=== PATIENT | male | born 1940 | race African-American/Black ===

== ENCOUNTER 2017-02-01 18:18 | Emergency (ER) | payer OTHER, MEDICAID ==
[2017-02-01 18:29] VITALS: RESP 18
[2017-02-01] MEDS ORDERED: HYDROCODONE/APAP 10/325 TAB PO ONE (18:35)
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
[2017-02-01] MEDS ORDERED: HYDROCODONE/APAP 5/325 TAB ONE (18:39)
[2017-02-01] MEDS ORDERED: HYDROCODONE/APAP 5/325 TAB PO ONE (18:46)
[2017-02-01 19:32] LABS: ANION GAP 12 mEq/L (8-16); CALCIUM 8.9 mg/dL (8.5-10.4); CARBON DIOXIDE 22 mEq/l (22-31); CHLORIDE 104 mEq/L (97-110); GLOMERULAR FILTRATION RATE > 60; GLUCOSE 91 mg/dL (70-100); SODIUM 138 mEq/L (134-144)
[2017-02-01 19:39] LABS: POTASSIUM 4.1 mEq/L (3.3-5.0)
[2017-02-01 20:24] VITALS: BP 109/52; PULSE 72; TEMP 98.6; O2SAT 93
== END 2017-02-01 20:26 | disposition home or self-care (01) ==
LOC: EDUNIT#
DX: M54.5 Low back pain (principal); G89.29 Other chronic pain; E11.9 Type 2 diabetes mellitus without complications; I10 Essential (primary) hypertension; Z79.84 Long term (current) use of oral hypoglycemic drugs; Z87.891 Personal history of nicotine dependence

== ENCOUNTER → 2017-04-11 | Outpatient (CLI) | payer OTHER, MEDICAID | LOC: FIMAGING 08:45 | PROVIDERS: ATTEND Family Medicine | DX: I25.10 Atherosclerotic heart disease of native coronary artery without angina pectoris (principal); I10 Essential (primary) hypertension; E11.40 Type 2 diabetes mellitus with diabetic neuropathy, unspecified; Z87.891 Personal history of nicotine dependence ==

== ENCOUNTER 2018-09-15 17:06 | Inpatient (IN) | payer OTHER, MEDICAID ==
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
[2018-09-15] MEDS ORDERED: NS 1,000 ML IV ONE (17:34)
[2018-09-15 17:41] LABS: PLATELET COUNT 368 10^3/uL (150-400)
--- NOTE | 2018-09-15 18:01 | CPEKG ---
Test Reason : OPEN Blood Pressure : / mmHG Vent. Rate : 090 BPM Atrial Rate : 090 BPM P-R Int : 200 ms QRS Dur : 078 ms QT Int : 501 ms P-R-T Axes : 072 044 260 degrees QTc Int : 613 ms Sinus rhythm Abnormal T, consider ischemia, diffuse leads Prolonged QT interval Confirmed by Felicity Braxton ([id number]) on 09/15/2018 6:00:08 PM Referred By: Confirmed By:Felicity Braxton
[2018-09-15] MEDS ORDERED: ONDANSETRON DISINTEGRATING 4 MG TAB PO PRN (20:16)
[2018-09-15] MEDS ORDERED: ONDANSETRON 4 MG/2 ML VIAL IVP PRN (20:16)
[2018-09-15] MEDS: LIDOCAINE 4%/MENTHOL 1% PATCH TD SCH (20:57)
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
[2018-09-16] MEDS: PATCH REMOVAL 1 EA PATCH TD SCH (04:08)
[2018-09-16] MEDS: HYDROCODONE/APAP 5/325 TAB PO PRN ×2 (05:23→20:20)
[2018-09-16] MEDS ORDERED: ENOXAPARIN 40 MG/0.4 ML SYR SC SCH (09:00)
--- NOTE | 2018-09-16 10:28 | PDMN ---
Medical Necessity Medical necessity: Pt meets IP criteria as of 09/15/2018 per and EMIL MG-N ( neurology GRG); est los > 2 mn for ongoing tx and management of new onset weakness with frequent falls in an elderly patient; requiring PT/OT, med management and further workup including MRI.
[2018-09-16] MEDS ORDERED: CARBOXYMETHYLCELLULOSE 0.5% 0.4 ML DROPERETTE EACHEYE PRN (10:43)
[2018-09-16] MEDS ORDERED: PSYLLIUM METAMUCIL 1 PKT PO PRN (10:43)
[2018-09-16] MEDS ORDERED: ALBUTEROL 60 PUFFS/8 GM MDI IH PRN (10:43)
[2018-09-16] MEDS ORDERED: guaiFENesin 600 MG TAB.ER PO PRN (10:43)
--- NOTE | 2018-09-16 14:18 | ASMTCMCOM ---
CM Note CM Note Notes: Pt is a 78 yo M who lives at [facility] after falling. PT/OT rec: HHC vs SNF. CM to follow to assess needs. Plan: HHC vs SNF Date Signed: 09/16/2018 02:17 PM Electronically Signed By:TIFFANY Michaud
--- NOTE | 2018-09-16 15:36 | HOSPPROG ---
Hospitalist Progress Note Assessment/Plan: Subjective Follow-up on fall. History taking was somewhat limited as patient was quite tired and falling asleep during my evaluation. He did state though that he has been having some weakness of his lower extremities and a tendency for falling more frequently in the past month. He denies any specific neck pain at the current time. 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 I reviewed the case this afternoon with Dr. Mcnamara who will provide formal consultation for further recommendations. Otherwise continue with PT and OT. Chronic pain-patient is on chronic narcotics for pain. Hypertension-continue lisinopril. Hyperlipidemia-atorvastatin. Depression continue bupropion. BPH-history of. I do not see that he is currently on any medical therapy. DVT prophylaxis-Lovenox. Disposition-patient is a resident at [facility]. Will need to see how he does with physical therapy and await further recommendations from Neuro surgery. Objective: Vital Signs Temp Pulse Resp BP Pulse Ox 36.6 C 70 16 112/64 93 09/16/18 13:13 09/16/18 13:13 09/16/18 13:13 09/16/18 13:13 09/16/18 13:13 09/15/18 09/16/18 09/17/18 05:59 05:59 05:59 Intake Total 1000 Output Total 400 275 Balance 600 -275 ICD10 Worksheet Patient Problems: Problems Problem Status Onset Muscle weakness Acute Osteoarthritis of glenohumeral joint Acute
[2018-09-16] MEDS: ACETAMINOPHEN 325 MG TAB PO PRN (17:07)
[2018-09-16] MEDS: DOCUSATE SODIUM 100 MG CAP PO SCH ×2 (17:08→20:21)
[2018-09-16] MEDS: buPROPion 100 MG TAB PO SCH ×2 (17:08→20:21)
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
[2018-09-16] MEDS: LIDOCAINE 4%/MENTHOL 1% PATCH TD SCH (20:19)
[2018-09-16] MEDS: ATORVASTATIN CALCIUM 20 MG TAB PO SCH (20:21)
[2018-09-17] MEDS ORDERED: ceFAZolin 2 GM/DEXTROSE 100 ML IV ONE (08:59)
[2018-09-17] MEDS ORDERED: ASPIRIN EC 81 MG TAB PO SCH (09:00)
--- NOTE | 2018-09-17 09:06 | PDHPUP ---
History & Physical Update H&P update statement: This history and physical update is based on an assessment of the patient which was completed after admission or registration (within 24 hours), but prior to the surgery/procedure. H&P update: H&P reviewed & patient examined, no change in patient's condition since H&P completed (Risks, benefits and alternatives to ACDF C4/5 discussed with patient. Consents signed, questions answered. Patient marked. )
[2018-09-17 09:10] LABS: INR 1.09 (0.83-1.16); PROTIME(PATIENT) 14.3 SEC (12.0-15.0)
[2018-09-17] MEDS: POLYETHYLENE GLYCOL 3350 17 GM PKT PO SCH (09:29)
[2018-09-17] MEDS: SENNOSIDES/DOCUSATE SODIUM TAB PO SCH (10:13)
[2018-09-17] MEDS: buPROPion 100 MG TAB PO SCH (10:13)
[2018-09-17] MEDS: PATCH REMOVAL 1 EA PATCH TD SCH (10:19)
[2018-09-17] MEDS: LISINOPRIL/HCTZ 10/12.5 MG 1 EA TAB PO SCH (10:27)
[2018-09-17] MEDS ORDERED: GABAPENTIN 300 MG CAP PO ONE (13:00)
[2018-09-17] MEDS: DOCUSATE SODIUM 100 MG CAP PO SCH ×3 (13:12→21:36)
[2018-09-17] MEDS ORDERED: LR 1,000 ML IV ONE (14:31)
[2018-09-17] MEDS ORDERED: CEFAZOLIN 2 GM/DEXTROSE/100 ML BAG IV ONE (14:40)
--- NOTE | 2018-09-17 14:45 | PDANEPAE ---
ANE History of Present Illness severe cervical stenosis a/w weakness ANE Past Medical History - Cardiovascular History Hx Hypertension: Yes Hx Arrhythmias: No Hx Coronary Artery / Peripheral Vascular Disease: No Hx CHF / Valvular Disease: No - Pulmonary History Hx COPD: No Hx Asthma/Reactive Airway Disease: No Hx Recent Upper Respiratory Infection: No Hx Oxygen in Use at Home: No Hx Sleep Apnea: No Sleep Apnea Screening Result - Last Documented: Positive - Neurologic History Hx Cerebrovascular Accident: No Hx Seizures: No Hx Dementia: No Neurologic History Comment: numbness R hand - Endocrine History Hx Diabetes: Yes Hypothyroid: No Hyperthyroid: No Obesity: no Endocrine History Comment: oral diabetic med - Renal History Hx Renal Disorders: Yes Renal History Comment: benign prostate enlargement. R ing. hernia repair - Liver History Hx Hepatic Disorders: Yes Hepatic History Comment: Hep C positive did 6mo. TX, now negative - Neurological & Psychiatric Hx Hx Neurological and Psychiatric Disorders: Yes Neurological / Psychiatric History Comment: depression - Cancer History Hx Cancer: No - Congenital Disorder History Hx Congenital Disorders: No - GI History GERD: no Hx Gastrointestinal Disorders: No Gastrointestinal History Comment: norm. colonoscopy - Other Health History Other Health History: arthritis joints. many missing teeth - Chronic Pain History Chronic Pain: Yes (L shoulder, back) - Surgical History Prior Surgeries: exp. lap 1967. R ing, hernia 2001 ANE Review of Systems Review of systems is: negative Review of Systems: - Exercise capacity Exercise capacity: >=4 METS ANE Patient History - Allergies Allergies/Adverse Reactions: No Known Drug Allergies Allergy (Verified 09/15/18 20:38) - Home Medications Home medications: home medication list seen and reviewed Home Medications: Acetylcysteine [Nac] 500 mg PO DAILY 09/15/18 [Last Taken Unknown] Albuterol [Proventil Inhaler HFA (*)] 1 - 2 puffs IH Q4-6PRN PRN 09/15/18 [Last Taken Unknown] Aspirin EC [Aspirin EC 81 mg (*)] 81 mg PO DAILY 09/15/18 [Last Taken Unknown] Atorvastatin Calcium [Lipitor 20 mg (*)] 20 mg PO HS 09/15/18 [Last Taken Unknown] Carboxymethylcellulose 0.5% [Refresh Plus Drops 0.5%] 2 drops EACHEYE TID PRN [Last Taken Unknown] Docusate Sodium [Colace 100 MG (*)] 100 mg PO 12,20 09/15/18 [Last Taken Unknown ] Hydrocodone/APAP 5/325 [Florence 5/325 (*)] 1 each PO DAILY 09/15/18 [Last Taken Unknown] Hydrocodone/APAP 5/325 [Florence 5/325 (*)] 1 tab PO Q8 PRN 09/15/18 [Last Taken Unknown] Hydrocodone/APAP 5/325 [Florence 5/325 (*)] 2 tab PO HS 09/15/18 [Last Taken Unknown] Lisinopril/Hctz 10/12.5 mg [Zestoretic/Prinzide 10/12.5MG (*)] 1 ea PO DAILY [Last Taken Unknown] Polyethylene Glycol 3350 [Miralax 17 gm (*)] 17 gm PO DAILY 09/15/18 [Last Taken Unknown] Psyllium Husk (with Sugar) [Metamucil Packet] 1 each PO DAILY PRN 09/15/18 [ Last Taken Unknown] Sennosides/Docusate Sodium [Senna-S Tablet] 1 each PO DAILY 09/15/18 [Last Taken Unknown] Triamcinolone 0.1% [Triamcinolone 0.1% Cream (*)] 1 candis TP BID PRN 09/15/18 [ Last Taken Unknown] buPROPion [Wellbutrin 100mg (*)] 100 mg PO TID 09/15/18 [Last Taken Unknown] guaiFENesin [Mucinex 600 MG (*)] 600 mg PO BID PRN 09/15/18 [Last Taken Unknown] - NPO status NPO Status: no food or drink >8 hours NPO Since - Liquids (Date): 09/17/18 NPO Since - Liquids (Time): 05:00 NPO Since - Solids (Date): 09/16/18 NPO Since - Solids (Time): 19:00 - Anes Hx Anes Hx: no prior problems - Smoking Hx Smoking Status: Former smoker ANE Labs/Vital Signs - Labs Result Diagrams: 09/15/18 17:17 09/15/18 17:17 - Vital Signs Vital Signs: reviewed preoperatively; see RN documention for details Blood Pressure: 111/65 Heart Rate: 67 Respiratory Rate: 16 O2 Sat (%): 92 Height: 180.34 cm Weight: 95.254 kg ANE Physical Exam - Airway Neck exam: FROM Mallampati Score: Class 2 Mouth exam: poor dentition - Pulmonary Pulmonary: no respiratory distress - Cardiovascular Cardiovascular: regular rate and rhythym - ASA Status ASA Status: IV ANE Anesthesia Plan Anesthesia Plan: general endotracheal anesthesia Lines/Monitors: arterial line
[2018-09-17] MEDS ORDERED: CHLORHEXIDINE GLUC HIBICLENS 118 ML BTL TP ONE (14:48)
[2018-09-17] MEDS ORDERED: SURGIFLO MATRIX KIT WITH THROMBIN 8 ML TP ONE (14:48)
[2018-09-17] MEDS ORDERED: THROMBIN (BOVINE) 20,000 UNIT VIAL TP ONE (14:48)
[2018-09-17] MEDS ORDERED: BACITRACIN 50,000 UNITS/10 ML SYR IRR ONE (14:48)
[2018-09-17] MEDS ORDERED: PROPOFOL/EMULSION 500 MG/50 ML BOTTLE IV ONE ×2 (15:11→16:10)
[2018-09-17] MEDS ORDERED: fentaNYL 250 MCG/5 ML INJ ONE (15:12)
[2018-09-17] MEDS ORDERED: PROPOFOL 200 MG/20 ML VIAL ONE (15:12)
[2018-09-17] MEDS ORDERED: DEXAMETHASONE 4 MG/ML VIAL ONE ×2 (16:03→16:04)
--- NOTE | 2018-09-17 16:17 | HOSPPROG ---
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 -to OR today for decompression/fusion Chronic pain-cont home meds Hypertension-continue lisinopril. Hyperlipidemia-atorvastatin. Depression continue bupropion. DVT prophylaxis-Lovenox held this am Disposition-patient is a resident at [facility], may need SNF, will obtain PT/OT evals post-op Objective: Vital Signs Temp Pulse Resp BP Pulse Ox 37.1 C 67 16 111/65 92 09/17/18 14:35 09/17/18 14:45 09/17/18 14:45 09/17/18 14:45 09/17/18 14:45 09/16/18 09/17/18 09/18/18 05:59 05:59 05:59 Intake Total 1000 1600 Output Total 400 945 200 Balance 600 655 -200 PT 14.3 SEC (12.0-15.0) 09/17/18 08:35 INR 1.09 (0.83-1.16) 09/17/18 08:35 ICD10 Worksheet Patient Problems: Problems Problem Status Onset Muscle weakness Acute Osteoarthritis of glenohumeral joint Acute
[2018-09-17] MEDS ORDERED: ONDANSETRON 4 MG/2 ML VIAL ONE (16:58)
--- NOTE | 2018-09-17 17:25 | POSTANESTH ---
Post Anesthetic Evaluation Cardiovascular Status: Normal, Stable Respiratory Status: Normal, Stable Level of Consciousness/Mental Status: Can Participate in Eval Pain Control: Adequate, Prn Tx Ordered Nausea/Vomiting Control: Adequate, Prn Tx Ordered Complications Possibly Related to Anesthesia: None Noted
--- NOTE | 2018-09-17 17:26 | POSTOPPROG ---
Post Op Note Date of Operation: 09/17/18 Surgeon: Vargas Lares Senior Publications Specialist: Kathleen Stephens CIRCULAR TANK COOPER Anesthesia: GET(General Endotracheal) Pre-op Diagnosis: Cervical stenosis with myelopathy Procedure: ACDF C4-5 Inf/Abcess present in the surg proc area at time of surgery?: No Depth: Deep Incisional (Fascial) EBL: Minimal Total fluids administered: see anesthesia Complications: none Date of Surgery: 09/17/18 Post Op Day: 0 Assessment/Plan: Assessment: 78 yr old M s/p ACDF C4-5 Plan: -PT/OT/ST -Post op xrays in am -No collar needed -Will give two doses of dex post operatively -Patient discussed with Dr Lares Please call with questions/concerns Subjective: waking up in pacu Objective: waking up in pacu MAEx4 LUE 3/5 triceps and hand supply technician Dressing CDI Appropriate Neuro Check Frequency Ordered: Yes
[2018-09-17] MEDS ORDERED: BISACODYL 10 MG SUPP PR PRN (17:27)
[2018-09-17] MEDS ORDERED: diphenhydrAMINE 25 MG CAP PO PRN (17:27)
[2018-09-17] MEDS ORDERED: MAGNESIUM HYDROXIDE 30 ML UDCUP PO PRN (17:27)
[2018-09-17] MEDS ORDERED: NS 1,000 ML IV SCH (17:30)
[2018-09-17] MEDS ORDERED: LABETALOL HCL 5 MG/ML 20 ML MDV IVP PRN (17:49)
[2018-09-17] MEDS ORDERED: PROMETHAZINE HCL 25 MG/ML INJ IVP PRN (17:49)
[2018-09-17] MEDS ORDERED: HYDROmorphONE/DILAUDID 2 MG/ML INJ IVP PRN (17:49)
[2018-09-17] MEDS ORDERED: LR 500 ML IV PRN (17:49)
[2018-09-17] MEDS ORDERED: oxyCODONE IR 5 MG TAB PO PRN (17:49)
[2018-09-17] MEDS ORDERED: ACETAMINOPHEN 500 MG TAB PO PRN (17:49)
[2018-09-17] MEDS ORDERED: MEPERIDINE 25 MG/0.5 ML AMP IVP PRN (17:49)
[2018-09-17] MEDS ORDERED: DEXAMETHASONE 4 MG/ML VIAL IVP PRN (17:49)
[2018-09-17] MEDS ORDERED: METOCLOPRAMIDE 10 MG/2 ML VIAL IVP PRN (17:49)
[2018-09-17] MEDS ORDERED: PHENYLEPHRINE HCL 100 MCG/ML SYR IVP PRN (17:49)
[2018-09-17] MEDS ORDERED: ALBUTEROL 3 ML DEYVIAL IH PRN (17:49)
[2018-09-17] MEDS ORDERED: fentaNYL 100 MCG/2 ML INJ ONE (17:49)
[2018-09-17] MEDS ORDERED: NALOXONE HCL 0.4 MG/ML INJ IVP PRN (17:49)
[2018-09-17] MEDS ORDERED: ONDANSETRON 4 MG/2 ML VIAL IVP PRN (17:49)
[2018-09-17] MEDS: fentaNYL 100 MCG/2 ML INJ IVP PRN ×2 (17:50→18:09)
--- NOTE | 2018-09-17 17:58 | GOP ---
DATE OF OPERATION: 09/17/2018 SURGEON: Vargas Lares MD CORPORATE COMMUNICATIONS MANAGER: Kathleen Stephens NP. ANESTHESIA: General. PREOPERATIVE DIAGNOSIS: 1. C4-C5 severe spinal stenosis with myelomalacia. 2. Progressive neurological deficit and myelopathy. 3. Treatment refractory to nonoperative intervention. POSTOPERATIVE DIAGNOSIS: 1. C4-C5 severe spinal stenosis with myelomalacia. 2. Progressive neurological deficit and myelopathy. 3. Treatment refractory to nonoperative intervention. PROCEDURE PERFORMED: 1. Anterior arthrodesis with approach to C4-C5. 2. C4-C5 diskectomy with bilateral foraminotomies, osteophytectomies, and interbody fusion using a 7 mm titanium coated polyetheretherketone cage filled with morselized autograft. 3. Anterior cervical fusion C4-C5 with a 17 mm Medtronic Zevo plate. 4. Use of intraoperative fluoroscopy, less than 1 hour physician time. 5. Use of neuromonitoring. 6. Use of the operating microscope. FINDINGS: per imaging ESTIMATED BLOOD LOSS: 20 mL. INDICATIONS: This is very pleasant, 78-year-old gentleman, who is admitted to the hospital for frequent falls. Imaging workup demonstrated severe spinal stenosis at the C4-C5 level with myelomalacia. There are other levels of stenosis which were not severe and were considered more mild to moderate. Given his age and given his progressive neurological deficit, we decided to proceed forth with surgery as described above. DESCRIPTION OF PROCEDURE: The patient was brought to operating theater and underwent general endotracheal anesthesia without complications. He had Venodynes, AALIYAH hose, and the appropriate lines placed by Anesthesia. His head was maintained supine on the operating table in slight extension. His MAPS were maintained above 75 throughout the surgical procedure. All bony prominences inspected and padded. Use of fluoroscopy and spinal needle, we picked our entry point to the C4-C5 level. This was marked as a transverse incision on the right side of the neck. This area was prepped and draped in the usual sterile surgical fashion. A time-out was completed per protocol. The patient received antibiotics within 1 hour of incision. The incision was taken down initially with the scalpel blade and using monopolar , taken down through subcutaneous tissues to the level of platysma. The platysma was over-mined in the cranial and caudal direction. A Weitlaner was placed to maintain our exposure. We opened the fibers of the platysma cranially and caudally. Using both blunt and sharp dissection, we traveled in a plane medial to the carotid sheath and lateral to the esophagus and trachea to reach the prevertebral fascia. We placed a bayonetted needle into the disk space of C4-C5 and confirmed our level using lateral fluoroscopy. We elevated the longus coli muscle from the anterior vertebral bodies of C4 and C5, and a deep retractor was placed to maintain our exposure. The microscope was brought into field to assist with microscopic dissection and to maintain illumination and magnification. Aurora pins were placed in the vertebral body of C4 and C5 and C4-C5 placed into mild distraction. We completed a C4-C5 diskectomy with bilateral foraminotomies and osteophytectomies. We prepared the cartilaginous endplates and measured the interbody space. We placed a 7 mm titanium coated PEEK cage filled with morselized autograft into the C4-C5 disk space. We removed the Aurora pins and drilled down the anterior osteophytes and secured a 17 mm Medtronic Zevo plate onto the vertebral bodies of C4 and C5. AP and lateral x-rays demonstrated good placement of the hardware. The wound was irrigated copiously with bacitracin irrigation and closed in multiple layers including Vicryl sutures in deep layers and Dermabond for the skin. The patient's wounds were dressed sterilely. He was then awakened and extubated and taken to the recovery room in stable condition. There were no complications and no noted changes on neuromonitoring throughout the procedure. COMPLICATIONS: None. /[id number]/MODL MTDD
[2018-09-17] MEDS: LIDOCAINE 4%/MENTHOL 1% PATCH TD SCH (21:33)
[2018-09-17] MEDS: FAMOTIDINE 20 MG TAB PO SCH (21:36)
[2018-09-17] MEDS: ATORVASTATIN CALCIUM 20 MG TAB PO SCH (21:36)
[2018-09-18] MEDS: DEXAMETHASONE 4 MG/ML VIAL IVP SCH ×2 (00:19→14:27)
[2018-09-18] MEDS: ceFAZolin 2 GM/DEXTROSE 100 ML IV SCH ×2 (00:33→07:53)
[2018-09-18] MEDS: buPROPion 100 MG TAB PO SCH ×5 (00:39→21:18)
--- NOTE | 2018-09-18 07:17 | NEUSURGPN ---
Date of Surgery: 09/17/18 Post Op Day: 1 Assessment/Plan: Assessment: 78 yr old M s/p ACDF C4-5 POD#1 Plan: - neuro stable - pain control - postop C-spine x-rays pending - PT/OT/LINE DANCER - no collar needed - please call with questions/concerns - stable from neurosurgery standpoint for discharge if tolerating a diet and pain well controlled Discussed with Dr. Lares. Subjective: Has residual right hand numbness. No arm pain. Objective: Awake. Alert. Muscle strength full at 5/5 Incision with dressing c/d/i - Physician Discussed Patient with Dr.: Lares Neurosurgery Physical Exam - Vitals, I&O, Labs I and O 09/17/18 09/18/18 09/19/18 05:59 05:59 05:59 Intake Total 1600 940 Output Total 945 600 Balance 655 340 Weight 95.254 kg Intake: Oral (ml) 1600 IV Intake (ml) 940 Output: Urine (ml) 945 500 Urinal 945 500 Estimated Blood Loss (ml) 100 Other: Intake Quantity Yes Sufficient Number of Voids Incontinence 2 Urinal 3 2 Vital Signs Temp Pulse Resp BP Pulse Ox 36.9 C 84 16 121/73 H 92 09/18/18 03:31 09/18/18 03:31 09/18/18 03:31 09/18/18 03:31 09/18/18 03:31 ICD10 Worksheet Patient Problems: Problems Problem Status Onset Muscle weakness Acute Osteoarthritis of glenohumeral joint Acute
[2018-09-18] MEDS: LISINOPRIL/HCTZ 10/12.5 MG 1 EA TAB PO SCH (07:46)
[2018-09-18] MEDS: POLYETHYLENE GLYCOL 3350 17 GM PKT PO SCH (07:48)
[2018-09-18] MEDS: METHOCARBAMOL 750 MG TAB PO PRN ×2 (07:49→15:56)
[2018-09-18] MEDS: SENNOSIDES/DOCUSATE SODIUM TAB PO SCH (07:49)
[2018-09-18] MEDS: FAMOTIDINE 20 MG TAB PO SCH ×2 (07:50→21:17)
[2018-09-18] MEDS: HYDROCODONE/APAP 5/325 TAB PO PRN ×2 (07:50→15:43)
--- NOTE | 2018-09-18 13:54 | ASMTCMCOM ---
CM Note CM Note Notes: PT/OT rec C and BOAT REPAIRER. Katherine with [facility] cannot get out to assess pt for return to [facility] until tomorrow morning. Pt updated. D/c plan of care: Return to [facility] with [facility] Date Signed: 09/18/2018 01:53 PM Electronically Signed By:GARCIA Pettit
[2018-09-18] MEDS: PATCH REMOVAL 1 EA PATCH TD SCH (14:05)
[2018-09-18] MEDS: DOCUSATE SODIUM 100 MG CAP PO SCH ×2 (15:43→21:16)
[2018-09-18] MEDS: ACETAMINOPHEN 325 MG TAB PO PRN (15:57)
--- NOTE | 2018-09-18 15:57 | ASMTCMCOM ---
CM Note CM Note Notes: Pt has been open with [facility] in the past, referral sent in [employer]. Spoke with Tata at [facility]. Date Signed: 09/18/2018 03:57 PM Electronically Signed By:GARCIA Pettit
--- NOTE | 2018-09-18 16:32 | HOSPPROG ---
Hospitalist Progress Note Assessment/Plan: Cervical stenosis - severe by MRI imaging with myelomalacia of the spinal cord in the cervical spine, contributing to falls. - s/p s/p ACDF C4-5 POD#1 - Neurosurgery consulted, cleared for d/c from their perspective Chronic pain-cont home meds Hypertension-continue lisinopril. Hyperlipidemia-atorvastatin. Depression continue bupropion. DVT prophylaxis-Lovenox held Disposition-patient is a resident at [facility], may need SNF, will obtain PT/OT Subjective: Patient reports significant improvement in back pain this AM Objective: Vital Signs Temp Pulse Resp BP Pulse Ox 36.8 C 70 16 103/65 93 09/18/18 15:02 09/18/18 15:02 09/18/18 15:02 09/18/18 15:02 09/18/18 15:02 09/17/18 09/18/18 09/19/18 05:59 05:59 05:59 Intake Total 1600 940 Output Total 945 600 175 Balance 655 340 -175 PT 14.3 SEC (12.0-15.0) 09/17/18 08:35 INR 1.09 (0.83-1.16) 09/17/18 08:35 - Physical Exam Constitutional: no apparent distress Eyes: PERRL Ears, Nose, Mouth, Throat: moist mucous membranes Cardiovascular: regular rate and rhythym Respiratory: no respiratory distress Gastrointestinal: soft, non-tender abdomen Musculoskeletal: pain with ROM Neurologic: AAOx3 Psychiatric: interacting appropriately ICD10 Worksheet Patient Problems: Problems Problem Status Onset Muscle weakness Acute Osteoarthritis of glenohumeral joint Acute
[2018-09-18] MEDS: ATORVASTATIN CALCIUM 20 MG TAB PO SCH (21:18)
[2018-09-18] MEDS: LIDOCAINE 4%/MENTHOL 1% PATCH TD SCH (21:18)
[2018-09-19 07:20] VITALS: BP 103/54
--- NOTE | 2018-09-19 09:55 | PDIAF ---
- Diagnosis Code Status: Full Code - Medication Management Discharge Medications: electronically signed and located in the Home Medication List. - Orders Services needed: Physical Therapy, Occupational Therapy Diet Texture: Regular Texture Diet, Thin Liquids, Meds Whole w/Liquids - Follow Up Care Current Providers and Referrals: Patient,NotPresent [Unknown] - As per Instructions
--- NOTE | 2018-09-19 10:06 | NEUSURGPN ---
Assessment/Plan: Assessment: 78 yr old M s/p ACDF C4-5 POD#2 Plan: - neuro stable - pain control - postop C-spine x-rays with intact hardware - PT/OT/FARM MANAGEMENT AGENT - please call with questions/concerns - stable from neurosurgery standpoint for discharge if tolerating a diet and pain well controlled. Will s/o at this time. Patient should follow up in 2-[address] Lares. Subjective: feels stronger, some posterior neck pain but tolerable Objective: Awake. Alert. Muscle strength full at 5/5, except left biceps 5-/5 Sensation intact Incision c/d/i Neurosurgery Physical Exam - Vitals, I&O, Labs I and O 09/18/18 09/19/18 09/20/18 05:59 05:59 05:59 Intake Total 940 450 Output Total 600 1050 225 Balance 340 -600 -225 Weight 95.254 kg Intake: Oral (ml) 350 IV Intake (ml) 940 IV Infused (ml) 100 ceFAZolin 2 GM/DEXTROSE 100 100 ml @ 200 mls/hr IV Q8H [facility] Rx#:[id number] Output: Urine (ml) 500 1050 225 Incontinence 225 Urinal 500 825 225 Estimated Blood Loss (ml) 100 Other: Intake Quantity Yes Sufficient Number of Voids Incontinence 2 1 Urinal 2 1 Vital Signs Temp Pulse Resp BP Pulse Ox 36.8 C 61 16 103/54 L 95 09/19/18 07:19 09/19/18 07:19 09/19/18 07:19 09/19/18 07:19 09/19/18 07:19 ICD10 Worksheet Patient Problems: Problems Problem Status Onset Muscle weakness Acute Osteoarthritis of glenohumeral joint Acute
[2018-09-19] MEDS: PATCH REMOVAL 1 EA PATCH TD SCH (10:22)
[2018-09-19] MEDS: buPROPion 100 MG TAB PO SCH (10:25)
[2018-09-19] MEDS: FAMOTIDINE 20 MG TAB PO SCH (10:25)
[2018-09-19] MEDS: POLYETHYLENE GLYCOL 3350 17 GM PKT PO SCH (10:26)
[2018-09-19] MEDS: SENNOSIDES/DOCUSATE SODIUM TAB PO SCH (10:26)
[2018-09-19] MEDS: LISINOPRIL/HCTZ 10/12.5 MG 1 EA TAB PO SCH (10:26)
--- NOTE | 2018-09-19 11:32 | ASMTLACE ---
LACE Length of stay for Answers: 4-6 days current admission Acuity / Level of Answers: Yes Care: Did the patient have an inpatient admission? Comorbidities - select Answers: Diabetes (uncontrolled or all that apply controlled) Opioid dependence / Chronic pain Other Notes: Hep C; HTN # of Emergency department Answers: 1-2 visits in the last 6 months Social determinants Answers: History of substance abuse (ETOH, street drugs, prescription drugs, etc.) Mental health diagnosis (anxiety, depression, pers onality disorders, etc.) Score: 20 Date Signed: 09/19/2018 11:31 AM Electronically Signed By:GARCIA Pettit
--- NOTE | 2018-09-19 11:34 | ASMTCMCOM ---
CM Note CM Note Notes: Pt medically stable for d/c back to [facility] with [facility] OT/PT. Orders sent to [facility] in [employer]. Signed med list faxed to [facility] scheduled for 11 auth is [id number]. Date Signed: 09/19/2018 11:33 AM Electronically Signed By:GARCIA Pettit
--- NOTE | 2018-09-19 13:06 | PDDCSUM ---
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 - s/p s/p ACDF C4-5 POD#1 - Neurosurgery consulted, cleared for d/c from their perspective, f/u as outpatient in 2-3 weeks Chronic pain-cont home meds Hypertension-continue lisinopril. Hyperlipidemia-atorvastatin. Depression continue bupropion. Time spent on discharge was >35 minutes with >50% of times spent on patient education and counseling.
--- NOTE | 2018-09-19 13:46 | ASDISCHSUM ---
Discharge Information Plan Status:Home with Home Health Medically Cleared to Leave: Discharge Date:09/19/2018 11:12 AM CM D/C Disposition: ADT D/C Disposition:Home, Routine, Self-Care Projected Discharge Date:09/19/2018 11:00 AM Transportation at D/C: Discharge Delay Reason: Follow-Up Date:09/19/2018 11:00 AM Discharge Slot: Final Diagnosis: Placement Information Referral Type:*Long-Term/SNF Referral ID:[id number] Provider Name: Address 1: Phone Number: Address 2: Fax Number: City: Selection Factors: State: Referral Type:*Home Health Care Services Referral ID:[id number] Provider Name:[facility] Address 1:[address] [facility] Phone Number: Address 2: Fax Number: [facility]:[place] Selection Factors: State:[place] Patient Contact Information Contact Name:REBA Relationship: Address:[facility] Work Phone: City:[place] Alternate Phone: [facility]/Zip Code:[place] [address] Email: Financial Information Financial Class:Medicare Primary Plan Desc:MEDICARE INPATIENT Primary Plan Number:[id number] Secondary Plan Desc:[place] Secondary Plan Number:[id number] Assessment Information LACE LACE Length of stay for Answers: 4-6 days current admission Acuity / Level of Answers: Yes Care: Did the patient have an inpatient admission? Comorbidities - select Answers: Diabetes (uncontrolled or all that apply controlled) Opioid dependence / Chronic pain Other Notes: Hep C; HTN # of Emergency department Answers: 1-2 visits in the last 6 months Social determinants Answers: History of substance abuse (ETOH, street drugs, prescription drugs, etc.) Mental health diagnosis (anxiety, depression, pers onality disorders, etc.) Score: 20 Date Signed: 09/19/2018 11:31 AM Electronically Signed By:GARCIA Pettit [facility] CM Progress Note CM Note CM Note Notes: Pt is a 78 yo M who lives at [facility] presents after falling. PT/OT rec: HHC vs SNF. CM to follow to assess needs. Plan: HHC vs SNF Date Signed: 09/16/2018 02:17 PM Electronically Signed By:TIFFANY Michaud [facility] CM Progress Note CM Note CM Note Notes: PT/OT rec HHC and CNA. Murphy with [facility] cannot get out to assess pt for return to [facility] until tomorrow morning. Pt updated. D/c plan of care: Return to [facility] with [facility] Date Signed: 09/18/2018 01:53 PM Electronically Signed By:GARCIA Pettit [facility] CM Progress Note CM Note CM Note Notes: Pt [facility] Spoke with Tata at [facility]. Date Signed: 09/18/2018 03:57 PM Electronically Signed By:GARCIA Pettit [facility] CM Progress Note CM Note CM Note Notes: Pt medically stable for d/c back to [facility] with [facility] OT/PT. Orders sent to [facility] in [employer]. Signed med list faxed to [facility]. Jamila stack scheduled for 11 auth is [id number]. Date Signed: 09/19/2018 11:33 AM Electronically Signed By:GARCIA Pettit Intervention Information
[2018-09-20] MEDS ORDERED: ENOXAPARIN 40 MG/0.4 ML SYR SC SCH (09:00)
== END 2018-09-19 11:12 | disposition home health service (06) | DRG 472 ==
LOC: EDUNIT# → F1N 20:44 → F3N 09-17 16:29
PROVIDERS: ADMIT Internal Medicine; ATTEND Internal Medicine
PROC: 4A1004G Monitoring of Central Nervous Electrical Activity, Intraoperative, Open Approach (ICD-10-PCS; principal; 2018-09-17 15:00)
PROC: 0RG10A0 Fusion of Cervical Vertebral Joint with Interbody Fusion Device, Anterior Approach, Anterior Column, Open Approach (ICD-10-PCS; principal; 2018-09-17 15:00)
PROC: 30233R1 Transfusion of Nonautologous Platelets into Peripheral Vein, Percutaneous Approach (ICD-10-PCS; 2018-09-17 15:00)
DX: M50.021 Cervical disc disorder at C4-C5 level with myelopathy (principal); G95.89 Other specified diseases of spinal cord; E86.9 Volume depletion, unspecified; R29.6 Repeated falls; I10 Essential (primary) hypertension; G47.30 Sleep apnea, unspecified; G89.29 Other chronic pain; E78.5 Hyperlipidemia, unspecified; E11.9 Type 2 diabetes mellitus without complications; N40.0 Benign prostatic hyperplasia without lower urinary tract symptoms; F32.9 Major depressive disorder, single episode, unspecified; Z79.4 Long term (current) use of insulin; Z87.891 Personal history of nicotine dependence
CPT/HCPCS: 82607-90; 92526-GN; 92610-GN; 97116-GP; 97161-GP; 97164-GP; 97166-GO; 97530-GO; 97535-GO; C1713; J0690; J1100; J1650; J2405; J2704; J3010; P9035